=== PATIENT | female | born 1940 | race Caucasian/White ===

== ENCOUNTER 2016-07-29 09:44 | Emergency (ER) | payer MEDICARE, BC ==
[~2016-07-29] VITALS: Ht 152.4 cm; Wt 85.1 kg
[~2016-07-29 09:44] MED LIST: AMLO10TA2 PO; LISI-167 PO; MECL-76 PO; TRAM50TA2 PO; VENL75TA PO; ZOLP10TA PO; [UNRECOGNIZED DRUG - CODE] RIGHT EAR
[2016-07-29] MEDS ORDERED: LISI-170 PO (10:03)
[2016-07-29] MEDS ORDERED: MORPHINE SULFATE 4 MG/ML, 1ML ONE (10:09)
[2016-07-29] MEDS ORDERED: ONDANSETRON 2MG/ML, 2ML ONE (10:10)
[2016-07-29] MEDS ORDERED: PLEASE ENTER PATIENTS HEIGHT MC SCH (10:30)
[2016-07-29] MEDS ORDERED: SODIUM CHLORIDE 0.9% 1,000ML IVBOLUS ONE (10:30)
[2016-07-29] MEDS ORDERED: ONDANSETRON 2MG/ML, 2ML IVPush ONE (10:30)
[2016-07-29] MEDS ORDERED: MORPHINE SULFATE 4 MG/ML, 1ML IVPush PRN (10:30)
[2016-07-29] MEDS ORDERED: VENL37.57 PO (11:53)
[2016-07-29] MEDS ORDERED: CLON1TAB23 PO (11:55)
[2016-07-29] MEDS ORDERED: IBUP800T PO (11:55)
[2016-07-29] MEDS ORDERED: ALEN70TA5 PO (11:56)
[2016-07-29 12:12] VITALS: BP 161/60
== END 2016-07-29 12:14 | disposition home or self-care (01) ==
LOC: ED 12:08
DX: S16.1XXA Strain of muscle, fascia and tendon at neck level, initial encounter (principal); S46.011A Strain of muscle(s) and tendon(s) of the rotator cuff of right shoulder, initial encounter; G89.11 Acute pain due to trauma; M25.551 Pain in right hip; R07.9 Chest pain, unspecified; Z90.710 Acquired absence of both cervix and uterus; Z90.49 Acquired absence of other specified parts of digestive tract; V43.53XA Car driver injured in collision with pick-up truck in traffic accident, initial encounter; Y93.89 Activity, other specified; Y99.8 Other external cause status; Y92.488 Other paved roadways as the place of occurrence of the external cause
CPT/HCPCS: 70450; 71010; 72125; 73060; 73502; 96361; 96374; 96375; 99285; J2405; J7030

== ENCOUNTER 2017-03-22 10:31 | Day surgery (SDC) | payer MEDICARE, BC ==
[~2017-03-22] VITALS: Ht 149.9 cm; Wt 82.7 kg
[~2017-03-22 10:31] MED LIST changes: +ALEN70TA5 PO; +CLON1TAB23 PO; +IBUP-1223 PO; +LISI-170 PO; +VENL37.57 PO
[2017-03-22] MEDS ORDERED: LIDOCAINE/PF 1%, 30ML ONE ×2 (10:56→11:01)
[2017-03-22] MEDS ORDERED: HEPARIN 1,000 UNITS/ML, 10ML ONE ×2 (10:56→12:24)
[2017-03-22] MEDS ORDERED: EPINEPHRINE 1 MG/ML, 1ML ONE (10:56)
[2017-03-22] MEDS ORDERED: PROTAMINE SULFATE 10 MG/ML, 5ML ONE (11:01)
[2017-03-22] MEDS ORDERED: LACTATED RINGERS 1,000 ML IV SCH (11:06)
[2017-03-22 11:07] VITALS: BP 161/72
[2017-03-22 11:39] LABS: HEMATOCRIT 42.7 % (34.6-47.8); HEMOGLOBIN 14.5 g/dL (11.7-16.4); WHITE BLOOD COUNT 6.1 x10^3/uL (3.4-10)
[2017-03-22 11:53] LABS: BLOOD UREA NITROGEN 17 mg/dL (7-18)
[2017-03-22] MEDS ORDERED: MIDAZOLAM 1 MG/ML, 2ML ONE (12:40)
[2017-03-22] MEDS ORDERED: FENTANYL PF 100 MCG/2ML ONE ×2 (12:40→14:35)
[2017-03-22] MEDS ORDERED: DEXAMETHASONE 4 MG/ML, 1ML ONE ×2 (12:42→12:43)
[2017-03-22] MEDS ORDERED: PROPOFOL 10 MG/ML, 20ML ONE (12:42)
[2017-03-22] MEDS ORDERED: ONDANSETRON 2MG/ML, 2ML ONE ×2 (12:42→12:43)
[2017-03-22] MEDS ORDERED: ROCURONIUM 10 MG/ML,10ML ONE (12:43)
[2017-03-22] MEDS ORDERED: SUCCINYLCHOLINE 20 MG/ML, 10ML ONE (12:43)
[2017-03-22] MEDS ORDERED: CEFAZOLIN 1,000 MG ONE ×2 (13:16)
[2017-03-22] MEDS ORDERED: EPHEDRINE 50 MG/ML, 1ML ONE (13:28)
[2017-03-22] MEDS ORDERED: ACETAMINOPHEN 325 MG TABLET PO PRN (13:30)
[2017-03-22] MEDS ORDERED: OXYcodone 5 MG/5 ML ORAL.SOL UDC PO PRN (13:30)
[2017-03-22] MEDS ORDERED: MEPERIDINE/PF 25MG/0.5ML IVPush PRN (13:30)
[2017-03-22] MEDS ORDERED: ALBUTEROL SULFATE 2.5 MG/3 ML NPPB PRN (13:30)
[2017-03-22] MEDS ORDERED: hydrALAzine 20 MG/ML, 1ML IV PRN (13:30)
[2017-03-22] MEDS ORDERED: ONDANSETRON 2MG/ML, 2ML IVPush PRN (13:30)
[2017-03-22] MEDS ORDERED: HYDROmorphone 1 MG/ML, 1ML IV PRN (13:30)
[2017-03-22] MEDS ORDERED: MIDAZOLAM 1 MG/ML, 2ML IV PRN (13:30)
[2017-03-22] MEDS ORDERED: FENTANYL PF 100 MCG/2ML IV PRN (13:30)
[2017-03-22] MEDS ORDERED: PROMETHAZINE 25 MG/ML, 1ML IV PRN (13:30)
[2017-03-22] MEDS ORDERED: ACETAMINOPHEN 650 MG/20.3 ML UDC ONE (14:35)
[2017-03-22] MEDS ORDERED: OXYcodone 5 MG/5 ML ORAL.SOL UDC ONE (14:35)
[2017-03-22] MEDS ORDERED: LABETALOL 5MG/ML, 20ML ONE (14:47)
[2017-03-22] MEDS: LABETALOL 5MG/ML, 20ML IV PRN ×2 (14:49→15:07)
== END 2017-03-22 17:50 ==
LOC: OUT 10:31
PROVIDERS: ATTEND Surgery
DX: I83.11 Varicose veins of right lower extremity with inflammation (principal); I83.12 Varicose veins of left lower extremity with inflammation; I10 Essential (primary) hypertension; F32.9 Major depressive disorder, single episode, unspecified; Z87.39 Personal history of other diseases of the musculoskeletal system and connective tissue; Z98.890 Other specified postprocedural states; Z90.710 Acquired absence of both cervix and uterus; Z88.1 Allergy status to other antibiotic agents; Z88.0 Allergy status to penicillin
CPT/HCPCS: 36415; 36475; 37799; 80048; 85025; 93005; C1888; J0171; J0330; J0690; J1100; J1644; J2250; J2405; J2704; J3010; J3490; J7120; J2720

== ENCOUNTER 2017-12-30 19:59 | Emergency (ER) | payer MEDICARE, BC ==
[~2017-12-30] VITALS: Ht 149.9 cm; Wt 81.1 kg
[~2017-12-30 19:59] MED LIST changes: -AMLO10TA2 PO; +AMLO10TA6 PO
[2017-12-30 20:27] VITALS: BP 207/83
== END 2017-12-30 22:04 | disposition home or self-care (01) ==
LOC: ED 21:50
DX: S22.079A Unspecified fracture of T9-T10 vertebra, initial encounter for closed fracture (principal); G89.11 Acute pain due to trauma; M54.5 Low back pain; M25.511 Pain in right shoulder; I10 Essential (primary) hypertension; Y04.0XXA Assault by unarmed brawl or fight, initial encounter; Y93.89 Activity, other specified; Y92.098 Other place in other non-institutional residence as the place of occurrence of the external cause; Y99.8 Other external cause status
CPT/HCPCS: 72050; 72072; 72110; 99284

== ENCOUNTER 2019-02-27 17:30 | Inpatient (IN) | payer MEDICARE, BC ==
[~2019-02-27] VITALS: Ht 149.9 cm; Wt 89.5 kg
[~2019-02-27 17:30] MED LIST changes: -ALEN70TA5 PO; +ALEN70TA6 PO; -AMLO10TA6 PO; +AMLO10TA8 PO
--- NOTE | 2019-02-27 17:40 | NUR ---
NOT IN LOBBY X1
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
--- NOTE | 2019-02-27 18:30 | NUR ---
PT ADVISED NOT TO GET OUT OF BED WITH OUT CALLING FOR ASSISTANCE. PT STATES UNDERSTANDING. CALL LIGHT IN REACH. FAMILY AT BEDSIDE.
--- NOTE | 2019-02-27 18:55 | NUR ---
REPORT TO NATALIA SOLARES.
[2019-02-27] MEDS ORDERED: SODIUM CHLORIDE FLUSH 10ML SYR IVF ONE (19:00)
--- NOTE | 2019-02-27 19:01 | NUR ---
PT TAKEN TO RADIOLOGY WITH TECH AT THIS TIME.
[2019-02-27 19:07] LABS: BASOPHILS # (AUTO) 0.02 x10^3/uL (0-0.1); BASOPHILS % (AUTO) 0 % (0-1); EOSINOPHILS # (AUTO) 0.18 x10^3/uL (0-0.4); EOSINOPHILS % (AUTO) 2 % (1-7); LYMPHOCYTES % (AUTO) 9 % (22-44); MD NO; MEAN CORPUSCULAR HEMOGLOBIN 33.1 pg (27.0-34.8); MEAN CORPUSCULAR HGB CONC 33.3 g/dL (32.4-35.8); MEAN CORPUSCULAR VOLUME 99.3 fL (80-100); MONOCYTES # (AUTO) 0.78 x10^3/uL (0.2-0.8); MONOCYTES % (AUTO) 6 % (2-9); NEUTROPHILS # (AUTO) 10.26 x10^3/uL (1.8-6.8); NEUTROPHILS % (AUTO) 83 % (42-75); PLATELET COUNT 261 x10^3/uL (130-400); RED BLOOD COUNT 4.13 x10^6/uL (3.82-5.3); RED CELL DISTRIBUTION WIDTH 14.1 % (9.6-15.2)
[2019-02-27 19:10] LABS: ALBUMIN 3.3 g/dL (3.4-5.0); ANION GAP 5 mmol/L (5-15); CALCIUM 8.6 mg/dL (8.5-10.1); CHLORIDE 110 mmol/L (98-107); CREATININE 0.87 mg/dL (0.55-1.02)
--- NOTE | 2019-02-27 19:36 | NUR ---
IV STARTED, PT TOLERATED WELL. PT TAKEN TO XRAY WITH TECH AT THIS TIME.
[2019-02-27] MEDS ORDERED: ONDANSETRON 2MG/ML, 2ML ONE (20:48)
[2019-02-27] MEDS ORDERED: MORPHINE SULFATE 4 MG/ML, 1ML ONE ×2 (20:49→22:06)
[2019-02-27] MEDS: MORPHINE SULFATE 4 MG/ML, 1ML IVPush PRN ×2 (20:54→22:09)
[2019-02-27] MEDS ORDERED: ONDANSETRON 2MG/ML, 2ML IVPush ONE (21:00)
[2019-02-27] MEDS ORDERED: L.E.T SOLUTION TP ONE ×2 (21:18→21:30)
[2019-02-27] MEDS ORDERED: DIPH,PERTUSS(ACELL),TET VAC/PF 0.5 ML IM-VACC ONE ×2 (21:30→21:59)
[2019-02-27] MEDS ORDERED: NEOSPORIN OINT. PKT 1 PACKET ONE (21:42)
[2019-02-27] MEDS ORDERED: SODIUM CHLORIDE FLUSH 10ML SYR IVF PRN (22:00)
[2019-02-27] MEDS ORDERED: LABETALOL 5MG/ML, 20ML IVPush PRN (23:00)
[2019-02-27] MEDS ORDERED: morphine SULFATE 10 MG/ML, 1ML IVPush PRN (23:00)
[2019-02-27] MEDS ORDERED: PROMETHAZINE 25 MG/ML, 1ML IM PRN (23:00)
[2019-02-27] MEDS ORDERED: ACETAMINOPHEN 325 MG TABLET PO PRN (23:00)
[2019-02-27] MEDS ORDERED: ENALAPRILAT 1.25 MG/ML, 2ML IVPush PRN (23:00)
[2019-02-27] MEDS ORDERED: OMNIPAQUE 350 MG/ML, 100ML BOTTLE ONE (23:14)
[2019-02-27 23:30] VITALS: BP 164/86
[2019-02-27 23:47] LABS: FREE T4 (FREE THYROXINE) 0.8 ng/dL (0.76-1.46)
[2019-02-28] MEDS: ZOLPIDEM 5MG TABLET PO PRN ×2 (00:12→01:21)
[2019-02-28] MEDS: KETOROLAC 30 MG/1 ML IV PRN ×3 (01:21→16:06)
[2019-02-28 01:41] VITALS: BP 143/84
[2019-02-28 01:43] LABS: MICROSCOPIC NOT IND
[2019-02-28 01:45] LABS: CULTURE INDICATED? NO
[2019-02-28 06:43] VITALS: BP 129/84
[2019-02-28] MEDS: ENOXAPARIN 40 MG/0.4 ML SQ SCH (08:00)
[2019-02-28] MEDS ORDERED: CARB200T13 PO (08:58)
[2019-02-28] MEDS ORDERED: LISI40TA PO (08:59)
[2019-02-28] MEDS ORDERED: LISINOPRIL 20 MG TABLET PO SCH (09:00)
[2019-02-28] MEDS: SENNA/DOCUSATE TABLET PO SCH (09:00)
[2019-02-28] MEDS ORDERED: AMLODIPINE 10 MG TAB PO SCH (09:00)
[2019-02-28] MEDS ORDERED: VENLAFAXINE 37.5MG TABLET PO SCH (09:00)
[2019-02-28] MEDS ORDERED: AMLO5TAB10 PO (09:02)
[2019-02-28] MEDS ORDERED: VENL150C6 PO (09:03)
[2019-02-28] MEDS ORDERED: ROPI1TAB2 PO (09:04)
[2019-02-28] MEDS ORDERED: AMLODIPINE 5 MG TABLET PO SCH (10:00)
[2019-02-28] MEDS ORDERED: CARBAMAZEPINE XR 200 MG TABLET PO SCH ×2 (10:00→22:00)
[2019-02-28] MEDS ORDERED: LISINOPRIL 40 MG TABLET PO SCH (10:00)
[2019-02-28] MEDS ORDERED: TEMPLATE NON-FORMULARY MED. (Venlafaxine Hcl** (Venlafaxine Hcl Er**) 150 MG) PO SCH (10:00)
[2019-02-28] MEDS ORDERED: LABE100T6 PO (10:15)
[2019-02-28] MEDS: CARBAMAZEPINE XR 200 MG TABLET PO SCH (11:00)
[2019-02-28 12:28] VITALS: BP 136/77
[2019-02-28] MEDS: LABETALOL 100 MG TABLET PO SCH (18:00)
[2019-02-28] MEDS ORDERED: LABETALOL 100 MG TABLET PO SCH (18:00)
[2019-02-28 18:34] VITALS: BP 123/71
[2019-02-28] MEDS: ROPINIROLE 1MG TABLET PO SCH (20:00)
[2019-02-28] MEDS: ZOLPIDEM 10MG TABLET PO SCH (20:36)
[2019-02-28] MEDS ORDERED: ROPINIROLE 1MG TABLET PO SCH (21:00)
[2019-03-01] VITALS (7 sets, daily range): BP systolic 127–167; BP diastolic 61–88
[2019-03-01] MEDS: KETOROLAC 30 MG/1 ML IV PRN ×2 (01:50→10:53)
[2019-03-01 05:20] LABS: BASOPHILS # (AUTO) 0.03 x10^3/uL (0-0.1); BASOPHILS % (AUTO) 0 % (0-1); EOSINOPHILS # (AUTO) 0.32 x10^3/uL (0-0.4); EOSINOPHILS % (AUTO) 4 % (1-7); LYMPHOCYTES # (AUTO) 1.43 x10^3/uL (1-3.4); LYMPHOCYTES % (AUTO) 18 % (22-44); MD NO; MEAN CORPUSCULAR HEMOGLOBIN 32.9 pg (27.0-34.8); MEAN CORPUSCULAR HGB CONC 32.9 g/dL (32.4-35.8); MEAN PLATELET VOLUME 8.1 fL (7.4-10.4); MONOCYTES # (AUTO) 0.69 x10^3/uL (0.2-0.8); MONOCYTES % (AUTO) 9 % (2-9); NEUTROPHILS # (AUTO) 5.59 x10^3/uL (1.8-6.8); NEUTROPHILS % (AUTO) 69 % (42-75); PLATELET COUNT 228 x10^3/uL (130-400); RED BLOOD COUNT 3.71 x10^6/uL (3.82-5.3); RED CELL DISTRIBUTION WIDTH 14.4 % (9.6-15.2)
[2019-03-01 05:31] LABS: ANION GAP 6 mmol/L (5-15); CHLORIDE 108 mmol/L (98-107)
[2019-03-01 05:33] LABS: CREATININE 0.92 mg/dL (0.55-1.02)
[2019-03-01] MEDS: LABETALOL 100 MG TABLET PO SCH ×2 (06:24→18:32)
[2019-03-01] MEDS: SENNA/DOCUSATE TABLET PO SCH (08:33)
[2019-03-01] MEDS: AMLODIPINE 5 MG TABLET PO SCH (08:34)
[2019-03-01] MEDS: CARBAMAZEPINE XR 200 MG TABLET PO SCH (08:34)
[2019-03-01] MEDS: VENLAFAXINE 75 MG CAP ER PO SCH (08:34)
[2019-03-01] MEDS: LISINOPRIL 40 MG TABLET PO SCH (08:34)
[2019-03-01] MEDS: ENOXAPARIN 40 MG/0.4 ML SQ SCH (08:35)
[2019-03-01] MEDS ORDERED: LIDODERM 5% PATCH TD SCH (09:00)
[2019-03-01] MEDS ORDERED: IBUPROFEN 600 MG TABLET PO PRN (09:00)
[2019-03-01] MEDS: ROPINIROLE 1MG TABLET PO SCH (21:00)
[2019-03-01] MEDS: ZOLPIDEM 10MG TABLET PO SCH (21:00)
[2019-03-02 00:19] VITALS: BP 143/78
[2019-03-02] MEDS ORDERED: LIDODERM 5% PATCH TD PRN (03:00)
[2019-03-02] MEDS: ONDANSETRON 2MG/ML, 2ML IVPush PRN (05:26)
[2019-03-02] MEDS: LABETALOL 100 MG TABLET PO SCH ×2 (06:00→21:37)
[2019-03-02 07:46] VITALS: BP 160/84
[2019-03-02] MEDS: CARBAMAZEPINE XR 200 MG TABLET PO SCH (10:09)
[2019-03-02] MEDS: ENOXAPARIN 40 MG/0.4 ML SQ SCH (10:09)
[2019-03-02] MEDS: VENLAFAXINE 75 MG CAP ER PO SCH (10:09)
[2019-03-02] MEDS: SENNA/DOCUSATE TABLET PO SCH (10:10)
[2019-03-02] MEDS: AMLODIPINE 5 MG TABLET PO SCH (10:10)
[2019-03-02] MEDS: LISINOPRIL 40 MG TABLET PO SCH (10:10)
[2019-03-02 11:08] LABS: CHOL/HDL RATIO 4.4; LDL/HDL RATIO 2.8 (0.5-3.0)
[2019-03-02 12:45] VITALS: BP 162/86
--- NOTE | 2019-03-02 15:33 | NUR ---
REC CHOPPED/THIN; swallow precautions sheet posted at bedside Addendum: 03/02/19 at [address] Amended: Links added.
[2019-03-02 17:13] VITALS: BP 149/80
[2019-03-02 19:03] VITALS: BP 151/74
[2019-03-02] MEDS ORDERED: ATORVASTATIN 40 MG TABLET PO SCH (21:00)
[2019-03-02] MEDS ORDERED: ATORVASTATIN 20 MG TABLET PO SCH (21:00)
[2019-03-02] MEDS: ZOLPIDEM 10MG TABLET PO SCH (21:33)
[2019-03-02] MEDS: ROPINIROLE 1MG TABLET PO SCH (21:38)
[2019-03-03 01:04] VITALS: BP 118/70
[2019-03-03] MEDS ORDERED: ASPIRIN 81 MG TABLET EC PO SCH (06:00)
[2019-03-03] MEDS: ASPIRIN 325 MG TABLET EC PO SCH (06:24)
[2019-03-03 07:24] VITALS: BP 115/72
[2019-03-03] MEDS ORDERED: MAGNESIUM CITRATE 300ML ORAL SOL PO PRN (09:00)
[2019-03-03 09:38] VITALS: BP 119/69
[2019-03-03] MEDS: SENNA/DOCUSATE TABLET PO SCH (09:39)
[2019-03-03] MEDS: LISINOPRIL 40 MG TABLET PO SCH (09:39)
[2019-03-03] MEDS: ENOXAPARIN 40 MG/0.4 ML SQ SCH (09:39)
[2019-03-03] MEDS: VENLAFAXINE 75 MG CAP ER PO SCH (09:39)
[2019-03-03] MEDS: CARBAMAZEPINE XR 200 MG TABLET PO SCH (09:40)
[2019-03-03] MEDS: AMLODIPINE 5 MG TABLET PO SCH (09:41)
[2019-03-03] MEDS: LABETALOL 100 MG TABLET PO SCH ×2 (09:41→18:55)
[2019-03-03] MEDS ORDERED: CLOPIDOGREL 300 MG TABLET PO ONE (11:30)
[2019-03-03 15:40] VITALS: BP 105/70
[2019-03-03 18:50] VITALS: BP 144/79
[2019-03-03 19:00] VITALS: BP 132/76
[2019-03-03] MEDS: ROPINIROLE 1MG TABLET PO SCH (21:01)
[2019-03-03] MEDS: ATORVASTATIN 40 MG TABLET PO SCH (21:01)
[2019-03-03] MEDS: ZOLPIDEM 10MG TABLET PO SCH (21:01)
[2019-03-03] MEDS: ONDANSETRON 2MG/ML, 2ML IVPush PRN (21:53)
[2019-03-04 00:17] VITALS: BP 120/80
[2019-03-04 05:57] VITALS: BP 105/58
[2019-03-04] MEDS: ASPIRIN 325 MG TABLET EC PO SCH (06:00)
[2019-03-04] MEDS: LABETALOL 100 MG TABLET PO SCH ×2 (06:00→17:45)
[2019-03-04] MEDS: DOCUSATE 100 MG CAPSULE PO SCH (07:54)
[2019-03-04] MEDS: SENNA/DOCUSATE TABLET PO SCH ×2 (07:55→20:32)
[2019-03-04] MEDS: ENOXAPARIN 40 MG/0.4 ML SQ SCH (08:05)
[2019-03-04 08:30] VITALS: BP 105/58
[2019-03-04] MEDS: VENLAFAXINE 75 MG CAP ER PO SCH (09:19)
[2019-03-04] MEDS: LISINOPRIL 40 MG TABLET PO SCH (09:21)
[2019-03-04] MEDS: CARBAMAZEPINE XR 200 MG TABLET PO SCH (09:21)
[2019-03-04] MEDS: AMLODIPINE 5 MG TABLET PO SCH (09:21)
[2019-03-04] MEDS: CLOPIDOGREL 75 MG TABLET PO SCH (09:22)
[2019-03-04] MEDS ORDERED: BISACODYL 10 MG SUPP PR PRN (09:30)
[2019-03-04] MEDS ORDERED: POLYETHYLENE GLYCOL 17 GM PACKET PO PRN (09:30)
[2019-03-04 13:39] VITALS: BP 112/64
[2019-03-04 18:35] VITALS: BP 115/69
[2019-03-04] MEDS: ATORVASTATIN 40 MG TABLET PO SCH (20:31)
[2019-03-04] MEDS: ZOLPIDEM 10MG TABLET PO SCH (20:31)
[2019-03-04] MEDS: ROPINIROLE 1MG TABLET PO SCH (20:32)
[2019-03-05 01:47] VITALS: BP 100/62
[2019-03-05] MEDS: LABETALOL 100 MG TABLET PO SCH ×2 (04:59→18:27)
[2019-03-05] MEDS: ASPIRIN 325 MG TABLET EC PO SCH (04:59)
[2019-03-05 05:00] VITALS: BP 102/62
[2019-03-05 07:41] VITALS: BP 124/72
[2019-03-05] MEDS: CLOPIDOGREL 75 MG TABLET PO SCH (09:02)
[2019-03-05] MEDS: ENOXAPARIN 40 MG/0.4 ML SQ SCH (09:02)
[2019-03-05] MEDS: VENLAFAXINE 75 MG CAP ER PO SCH (09:03)
[2019-03-05] MEDS: AMLODIPINE 5 MG TABLET PO SCH (09:03)
[2019-03-05] MEDS: CARBAMAZEPINE XR 200 MG TABLET PO SCH (09:03)
[2019-03-05] MEDS: DOCUSATE 100 MG CAPSULE PO SCH (09:03)
[2019-03-05] MEDS: LISINOPRIL 40 MG TABLET PO SCH (09:03)
[2019-03-05] MEDS: SENNA/DOCUSATE TABLET PO SCH ×2 (09:52→22:00)
--- NOTE | 2019-03-05 12:30 | NUR ---
REGULAR TEXTURE WITH THIN LIQUIDS - TRAFFIC ANALYST PLACED SWALLOW PRECAUTION SIGN IN ROOM Addendum: 03/05/19 at 1230 by Fernanda KITCHEN Amended: Links added.
[2019-03-05 14:14] VITALS: BP 117/69
[2019-03-05 19:17] VITALS: BP 131/59
[2019-03-05] MEDS: ATORVASTATIN 40 MG TABLET PO SCH (22:00)
[2019-03-05] MEDS: ROPINIROLE 1MG TABLET PO SCH (22:01)
[2019-03-05] MEDS: ZOLPIDEM 10MG TABLET PO SCH (22:01)
[2019-03-06 01:09] VITALS: BP 133/62
[2019-03-06] MEDS: ASPIRIN 325 MG TABLET EC PO SCH (05:33)
[2019-03-06] MEDS: LABETALOL 100 MG TABLET PO SCH (05:34)
[2019-03-06 06:27] VITALS: BP 125/85
[2019-03-06] MEDS: CARBAMAZEPINE XR 200 MG TABLET PO SCH (09:10)
[2019-03-06] MEDS: CLOPIDOGREL 75 MG TABLET PO SCH (09:11)
[2019-03-06] MEDS: VENLAFAXINE 75 MG CAP ER PO SCH (09:11)
[2019-03-06] MEDS: ENOXAPARIN 40 MG/0.4 ML SQ SCH (09:11)
[2019-03-06] MEDS: SENNA/DOCUSATE TABLET PO SCH (09:11)
[2019-03-06] MEDS: LISINOPRIL 40 MG TABLET PO SCH (09:11)
[2019-03-06] MEDS: DOCUSATE 100 MG CAPSULE PO SCH (09:11)
[2019-03-06] MEDS: AMLODIPINE 5 MG TABLET PO SCH (09:11)
[2019-03-06 12:01] VITALS: BP 130/78
[2019-03-06] MEDS ORDERED: ASPI-650 PO (14:04)
[2019-03-06] MEDS ORDERED: CLOP75TA PO (14:04)
[2019-03-06] MEDS ORDERED: ATOR40TA78 PO (14:04)
== END 2019-03-06 16:12 | disposition short-term general hospital (02) | DRG 184 ==
LOC: ED 19:58 → EDIP 21:33 → 3N 23:30 → 4EST 03-02 16:19
PROVIDERS: ADMIT Family Medicine; ATTEND Internal Medicine
DX: S22.41XA Multiple fractures of ribs, right side, initial encounter for closed fracture (principal); S82.031A Displaced transverse fracture of right patella, initial encounter for closed fracture; I10 Essential (primary) hypertension; R13.10 Dysphagia, unspecified; Z88.2 Allergy status to sulfonamides; Z91.010 Allergy to peanuts; F32.9 Major depressive disorder, single episode, unspecified; G89.29 Other chronic pain; M54.9 Dorsalgia, unspecified; K59.00 Constipation, unspecified; S01.511A Laceration without foreign body of lip, initial encounter; S01.81XA Laceration without foreign body of other part of head, initial encounter; S06.0X0A Concussion without loss of consciousness, initial encounter; W18.39XA Other fall on same level, initial encounter; Y93.89 Activity, other specified; Y92.89 Other specified places as the place of occurrence of the external cause; Y99.8 Other external cause status; Z85.42 Personal history of malignant neoplasm of other parts of uterus; Z90.710 Acquired absence of both cervix and uterus
CPT/HCPCS: 29505; 36415; 70450; 70486; 70496; 70498; 70551; 72110; 74177; 80048; 80061; 81003; 82040; 84439; 84443; 85025; 90471; 90715; 93005; 93306; 96374; 96375; 99283; 99285; G0378; J1650; J1885; J2405; Q9967; 92523-GN; J2270

== ENCOUNTER 2020-06-06 15:49 | Emergency (ER) | payer MEDICARE, BC ==
[~2020-06-06] VITALS: Ht 152.4 cm; Wt 80.0 kg
[~2020-06-06 15:49] MED LIST changes: -ALEN70TA6 PO; +ALEN70TA77 PO; +AMLO-210 PO; +AMLO-211 PO; -AMLO10TA8 PO; +ASPI325T20 PO; +ATOR40TA78 PO; +CARB200T13 PO; +CLOP75TA PO; +LABE100T6 PO; +LISI40TA9 PO; +ROPI1TAB4 PO; +VENL150C6 PO
--- NOTE | 2020-06-06 16:07 | NUR ---
bib ems. pt was at urgent care and they called ems for facal droop. pt has history of bells palsey. the pt states that " i have s&s of the covid" she states " destiney had chills at night and a cough"
--- NOTE | 2020-06-06 17:05 | NUR ---
pt in bed no distress.
[2020-06-06 17:37] LABS: BASOPHILS % (AUTO) 1 % (0-1); EOSINOPHILS % (AUTO) 3 % (1-7); LYMPHOCYTES % (AUTO) 20 % (22-44); MEAN CORPUSCULAR HEMOGLOBIN 32.2 pg (27.0-34.8); MEAN CORPUSCULAR HGB CONC 33.6 g/dL (32.4-35.8); MEAN PLATELET VOLUME 8.2 fL (7.4-10.4); MONOCYTES % (AUTO) 8 % (2-9); NEUTROPHILS % (AUTO) 69 % (42-75); PLATELET COUNT 198 x10^3/uL (130-400); RED BLOOD COUNT 4.01 x10^6/uL (3.82-5.3); RED CELL DISTRIBUTION WIDTH 14.4 % (9.6-15.2)
[2020-06-06 17:41] LABS: MD NO
[2020-06-06 17:43] VITALS: BP 164/74
--- NOTE | 2020-06-06 17:46 | NUR ---
pt given warm blanket.
[2020-06-06 17:47] LABS: ALANINE AMINOTRANSFERASE 22 U/L (12-78); ALBUMIN 3.4 g/dL (3.4-5.0); ANION GAP 8 mmol/L (5-15); CALCIUM 8.5 mg/dL (8.5-10.1); CHLORIDE 111 mmol/L (98-107); CREATININE 0.72 mg/dL (0.55-1.02)
[2020-06-06 17:49] LABS: ALKALINE PHOSPHATASE 91 U/L (45-117); BILIRUBIN,TOTAL 0.5 mg/dL (0.2-1.0); TOTAL PROTEIN 7.1 g/dL (6.4-8.2)
== END 2020-06-06 18:47 | disposition home or self-care (01) ==
LOC: ED 18:15
DX: R06.00 Dyspnea, unspecified (principal); R53.81 Other malaise; I10 Essential (primary) hypertension; R06.02 Shortness of breath; R11.0 Nausea; Z85.42 Personal history of malignant neoplasm of other parts of uterus
CPT/HCPCS: 36415; 71045; 80053; 85025; 93005; 99285

== ENCOUNTER 2020-06-21 09:19 | Emergency (ER) | payer MEDICARE, BC ==
[~2020-06-21] VITALS: Ht 149.9 cm; Wt 87.0 kg
--- NOTE | 2020-06-21 09:31 | NUR ---
PT IS A 80F BIB EMS COMPLAINING OF ABD PAIN X 1 MONTH THAT RADIATES TO THE BACK ON BOTH SIDES. SHE ALSO COMPLAINS OF PAIN WITH URINATION. PROVIDER AT BEDSIDE FOR AN EVAL. EMS PLACE A 20G IV IN THE LEFT AC. SHE WAS GIVEN 4 MG ZOFRAN AND 50 MCS FENTANYL EN ROUTE WHICH RELIEVER HER PAIN. PROVIDER AT BEDSIDE FOR EVAL AND POC. BP, SP02, AND CARDIAC MONITORS IN PLACE. CALL LIGHT WITHIN REACH.
[2020-06-21] MEDS ORDERED: SODIUM CHLORIDE FLUSH 10ML SYR IVF ONE (10:00)
[2020-06-21 10:02] LABS: BASOPHILS % (AUTO) 0 % (0-1); EOSINOPHILS % (AUTO) 0 % (1-7); LYMPHOCYTES % (AUTO) 9 % (22-44); MEAN CORPUSCULAR HEMOGLOBIN 31.7 pg (27.0-34.8); MEAN CORPUSCULAR HGB CONC 33.1 g/dL (32.4-35.8); MEAN PLATELET VOLUME 8.3 fL (7.4-10.4); MONOCYTES % (AUTO) 8 % (2-9); NEUTROPHILS % (AUTO) 83 % (42-75); PLATELET COUNT 206 x10^3/uL (130-400); RED BLOOD COUNT 3.87 x10^6/uL (3.82-5.3); RED CELL DISTRIBUTION WIDTH 14.3 % (9.6-15.2)
[2020-06-21 10:03] LABS: MD NO
--- NOTE | 2020-06-21 10:07 | NUR ---
PT RESTING COMFORTABLY ON GURNEY. CATH SPEC COLLECTED AND WALKED TO LAB. CALL LIGHT WITHIN REACH.
[2020-06-21 10:08] LABS: ALBUMIN 3.5 g/dL (3.4-5.0); ANION GAP 4 mmol/L (5-15); CHLORIDE 112 mmol/L (98-107)
[2020-06-21 10:10] LABS: ALANINE AMINOTRANSFERASE 23 U/L (12-78); ALKALINE PHOSPHATASE 89 U/L (45-117); BILIRUBIN,TOTAL 0.3 mg/dL (0.2-1.0); CREATININE 0.91 mg/dL (0.55-1.02); TOTAL PROTEIN 6.9 g/dL (6.4-8.2)
[2020-06-21 10:26] LABS: MICROSCOPIC AUTO
--- NOTE | 2020-06-21 11:22 | NUR ---
PT RESTING COMFORTABLY WITH SPOUSE AT BEDSIDE. PT WAS UP WITH ASSISTANCE TO THE RESTROOM. CALL LIGHT WITHIN REACH. ALL MONITORS IN PLACE.
[2020-06-21] MEDS ORDERED: MORPHINE SULFATE 4 MG/ML, 1ML IVPush PRN (11:30)
[2020-06-21] MEDS ORDERED: MORPHINE SULFATE 4 MG/ML, 1ML ONE ×2 (11:30→13:47)
[2020-06-21] MEDS ORDERED: ONDANSETRON 2MG/ML, 2ML IVPush ONE ×2 (11:30→13:30)
[2020-06-21] MEDS ORDERED: ONDANSETRON 2MG/ML, 2ML ONE ×2 (11:30→13:46)
--- NOTE | 2020-06-21 11:40 | NUR ---
pt states her abdominal pain and nausea are coming back. notified MD and medicated per orders.
--- NOTE | 2020-06-21 11:45 | NUR ---
pt to ct via [facility]
--- NOTE | 2020-06-21 12:16 | NUR ---
pt back from ct and resting comfortably with spouse at bedside. States her pain is back down to a 0/10. call light within reach, awaiting disposition
--- NOTE | 2020-06-21 13:17 | NUR ---
went to d/c pt, she was restless, tearfull, hanging over the bed complaining of 10/10 abd pain. notifed md. schaefer at bedside. orders recvd. report to Haley Feliciano.
--- NOTE | 2020-06-21 13:25 | NUR ---
BREAK RN FOR PRIMARY RN'S KOKO AND LIBRADO. DR. SEARS AT BEDSIDE, ORTHO/PROSTHETIC AIDE AT BEDSIDE FOR EKG. AWAITING ORDERS. CALL LIGHT IN REACH. FALL PRECAUTIONS IN PLACE.
[2020-06-21] MEDS ORDERED: MORPHINE SULFATE 4 MG/ML, 1ML IVPush ONE (13:30)
--- NOTE | 2020-06-21 13:53 | NUR ---
PT MEDICATED NOTED PER EMAR AND MD ORDER FOR 810 ABD PAIN. RESTING COMFORTABLY. DENIES NEED TO USE RESTROOM. FAMILY AT BEDSIDE. CALL LIGHT IN REACH. VSS. FALL PRECUATIONS IN PLACE.
--- NOTE | 2020-06-21 13:58 | NUR ---
BEDSIDE REPORT AND CARE BACK TO PRIMARY BECK [place] AT THIS TIME.
--- NOTE | 2020-06-21 14:16 | NUR ---
PT SLEEPING, RESP EVEN AND UNLABORED, NO DISTRESS NOTED
--- NOTE | 2020-06-21 14:35 | NUR ---
INSTRUCTED PT ON DISCHARGE INSTRUCTION, TO RETURN IF PAIN IS WORSE. Patient/Caregiver given discharge instructions and they have confirmed that they understand the instructions. Patient ambulatory with steady gait.
[2020-06-21 14:36] VITALS: BP 116/49
== END 2020-06-21 14:49 | disposition home or self-care (01) ==
LOC: ED 09:38
DX: G89.29 Other chronic pain (principal); R10.84 Generalized abdominal pain; R11.2 Nausea with vomiting, unspecified; M54.6 Pain in thoracic spine; I10 Essential (primary) hypertension; Z85.42 Personal history of malignant neoplasm of other parts of uterus; Z90.710 Acquired absence of both cervix and uterus; Z90.89 Acquired absence of other organs
CPT/HCPCS: 36415; 74176; 80053; 81001; 83690; 85025; 93005; 96374; 96375; 96376; 99285; J2270; J2405